=== PATIENT | female | born 1980 | race Hispanic/Latino ===

== ENCOUNTER 2020-11-28 14:30 | Emergency (ER) | payer OTHER ==
[~2020-11-28] VITALS: Ht 160 cm; Wt 90.7 kg
--- NOTE | 2020-11-28 18:41 | EKG ---
[facility] [address] [facility] [place], [place] [address] Signed Normal sinus rhythm Nonspecific ST abnormality Prolonged QT Abnormal ECG No previous ECGs available Confirmed by WILFREDO RUIZ DO ([id number]) on 11/28/2020 6:41:25 PM Electronically Signed By: WILFREDO RUIZ DO 11/28/201840 PATIENT NAME: DRAKE HENNING Electrocardiogram DATE OF : 76 PHYSICIAN: WILFREDO RUIZ DO REPORT #: [id number] REPORT IS CONFIDENTIAL AND NOT TO BE RELEASED WITHOUT AUTHORIZATION
== END 2020-11-28 17:19 | disposition home or self-care (01) ==
LOC: ED 14:30
DX: R06.4 Hyperventilation (principal)
CPT/HCPCS: 71045; 80053; 80500; 83735; 84484; 85025; 93005; 93010; 99284-25